=== PATIENT | female | born 1950 | race Caucasian/White ===

== ENCOUNTER 2016-10-24 09:20 | Inpatient (IN) ==
--- NOTE | 2016-10-23 21:35 | Discharge Summary ---
<Avelina Romano - Last Filed: 10/23/16 21:33> Date of Encounter: 10/23/16 - Discharge Diagnosis (1) Arthritis of knee, left Priority: Primary Status: Acute (2) Status post total knee replacement, left Status: Acute (3) HTN (hypertension) Priority: Secondary Status: Chronic Qualifiers: Hypertension type: essential hypertension Qualified Code(s): I10 - Essential (primary) hypertension (4) COPD (chronic obstructive pulmonary disease) Priority: Secondary Status: Chronic Qualifiers: COPD type: unspecified COPD Qualified Code(s): J44.9 - Chronic obstructive pulmonary disease, unspecified (5) CAD (coronary artery disease) Priority: Secondary Status: Chronic Qualifiers: Coronary Disease-Associated Artery/Lesion type: [place] artery [place] vs. transplanted heart: unspecified whether [place] or transplanted heart Associated angina: without angina Qualified Code(s): I25.10 - Atherosclerotic heart disease of [place] coronary artery without angina pectoris (6) Tobacco abuse Priority: Secondary Status: Chronic (7) Decreased GFR Priority: Secondary Status: Chronic - Discharge Medications Home Medications: Albuterol Sulfate [Albuterol Inhaler] 1 puff IH DAILY PRN 12/29/14 [History] Cholecalciferol (Vitamin D3) [Vitamin D3] 2,000 unit PO DAILY 12/29/14 [History] Hydrochlorothiazide [Microzide] 12.5 mg PO DAILY 12/29/14 [History] Ibuprofen [Motrin] 800 mg PO TID PRN 12/29/14 [History] Lisinopril [Zestril] 10 mg PO DAILY 12/29/14 [History] Omeprazole [PriLOSEC] 40 mg PO DAILY 12/29/14 [History] Oxazepam [Serax] 15 mg PO BID 12/29/14 [History] Tiotropium [Spiriva] 18 mcg IH DAILY 12/29/14 [History] Aspirin Enteric Coated [Aspirin EC] 325 mg PO DAILY #21 tablet. 10/23/16 [Rx] OxyCODONE Immed Rel [Roxicodone 5 MG] 5 - 10 mg PO Q6HR PRN #40 tablet 10/23/16 [Rx] Aspirin [Lo-Dose Aspirin EC] 81 mg PO DAILY 10/24/16 [History] Donepezil [Aricept] 5 mg PO HS 10/24/16 [History] [place]-3/Dha/Epa/Fish Oil [Fish Oil 1,000 mg Softgel] 1 each PO DAILY 10/24/16 [ History] Pravastatin Sodium [Pravachol] 80 mg PO HS 10/24/16 [History] Vitamin E Acid Succinate [Vitamin E] 400 units PO DAILY 10/24/16 [History] Allergies/Adverse Reactions: 3 Allergy/AdvReac Type Severity Reaction Status Date / Time naproxen AdvReac Nausea Verified 10/24/16 10:29 Sulfa (Sulfonamide AdvReac Nausea Verified 10/24/16 10:29 Antibiotics) Primary care physician: Robbin Knowles - Patient Status Disposition: Home, Self-Care Condition: Good - Discharge Instructions Follow Up With: Robbin Knowles, PAC [Primary Care Provider] - - Hospital Course Hospital course: Ms. Wellington is a 65 year old female - Time Spent with Patient Total time spent providing and/or coordinating discharge services: <Ramos Medrano - Last Filed: 10/25/16 06:41> Date of Encounter: 10/25/16 Time of Encounter: 06:41 - Discharge Diagnosis (1) Arthritis of knee, left Priority: Primary Status: Chronic (2) Status post total knee replacement, left Priority: Primary Status: Acute (3) HTN (hypertension) Priority: Secondary Status: Chronic Qualifiers: Hypertension type: essential hypertension Qualified Code(s): I10 - Essential (primary) hypertension (4) COPD (chronic obstructive pulmonary disease) Priority: Secondary Status: Chronic Qualifiers: COPD type: unspecified COPD Qualified Code(s): J44.9 - Chronic obstructive pulmonary disease, unspecified (5) CAD (coronary artery disease) Priority: Secondary Status: Chronic Qualifiers: Coronary Disease-Associated Artery/Lesion type: [place] artery [place] vs. transplanted heart: unspecified whether [place] or transplanted heart Associated angina: without angina Qualified Code(s): I25.10 - Atherosclerotic heart disease of [place] coronary artery without angina pectoris (6) Tobacco abuse Priority: Secondary Status: Chronic (7) Decreased GFR Priority: Secondary Status: Chronic Primary care physician: Robbin Knowles - Patient Status Functional capacity at discharge: uses cane/walker Overall status at discharge: patient is progressing back to baseline - Hospital Course Hospital course: Ms. Wellington is a 65 year old female Status post total knee replacement. The patient had an uneventful postoperative course. They received antibiotics and physical therapy and were discharged in stable condition. There will follow -up in the office in 2 weeks. - Time Spent with Patient Total time spent providing and/or coordinating discharge services:
[2016-10-24] MEDS ORDERED: CeFAZolin Pre 2,000 MG/100 ML 2,000 MG/100 ML BAG IVPB ONE (09:38)
[2016-10-24] MEDS ORDERED: Albuterol 2.5 MG/3 ML NEBULIZER IH ONE (09:38)
[2016-10-24] MEDS ORDERED: Gabapentin 300 MG CAPSULE PO ONE (09:40)
[2016-10-24] MEDS ORDERED: Famotidine 20 MG/2 ML VIAL IVP ONE (09:41)
[2016-10-24] MEDS ORDERED: Plasma-Lyte A (PH 7.4) 1,000 ML IVC SCH (09:45)
--- NOTE | 2016-10-24 09:46 | History & Physical Report ---
Date of Encounter: 10/24/16 Time of Encounter: 09:46 24 Hour HP Update - Instructions Instructions: If the History and Physical is less than 30 days old and was completed prior to A.M. admission and or procedure and has NOT been updated on calendar day of procedure please complete this update prior to performing procedure. - Update Patient reports changes in Medical Condition: No Changes in examination, assessment, or condition: No Changes in Medication: No Preop tests/diagnostics Reviewed: Yes Surgery Remains Indicated: Yes Consent for Planned Operative Procedure(s) Verified: Yes - Pre-Operative Checklist Preoperative Checklist Indicated: No Prophylactic Antibiotic Ordered: Yes Is VTE Prophylaxis Indicated?: Yes
[2016-10-24] MEDS ORDERED: *HR* Midazolam HCl 2 MG/2 ML VIAL ONE (09:55)
[2016-10-24] MEDS ORDERED: *HR* FentaNYL (PF) 100 MCG/2 ML VIAL ONE (09:55)
[2016-10-24] MEDS ORDERED: *HR* Propofol 200 MG/20 ML VIAL IVP ONE (09:55)
[2016-10-24] MEDS ORDERED: Lidocaine -MPF 2% 2 ML VIAL ONE (09:56)
--- NOTE | 2016-10-24 10:15 | Anesthesia Evaluation PreOp ---
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 HX Other Medical History: Renal (CKD) Anesthesia History: No Prior Anesthetic Complications Alcohol Use: none Drug use: marijuana Medications and Allergies Albuterol Sulfate [Proair HFA] 1 puff IH DAILY PRN 12/29/14 [History] Aripiprazole [Abilify] 20 mg PO DAILY 12/29/14 [History] Benztropine [Cogentin] 0.5 mg PO HS 12/29/14 [History] Cholecalciferol (Vitamin D3) [Vitamin D] 2,000 unit PO DAILY 12/29/14 [History] Gabapentin [Neurontin] 800 mg PO DAILY 12/29/14 [History] Hydrochlorothiazide [Microzide] 12.5 mg PO DAILY 12/29/14 [History] Ibuprofen [Motrin] 800 mg PO TID PRN 12/29/14 [History] Lisinopril [Zestril] 10 mg PO DAILY 12/29/14 [History] Melatonin [Melatin] 5 mg PO HS PRN 12/29/14 [History] Meloxicam [Mobic] 7.5 mg PO DAILY 12/29/14 [History] Metoprolol [Lopressor] 25 mg PO BID 12/29/14 [History] Omeprazole [Prilosec] 40 mg PO DAILY 12/29/14 [History] Oxaprozin [Daypro] 600 mg PO DAILY 12/29/14 [History] Oxazepam [Serax] 15 mg PO BID 12/29/14 [History] Pravastatin Sodium [Pravachol] 40 mg PO DAILY 12/29/14 [History] Prazosin [Minipress] 1 mg PO DAILY 12/29/14 [History] Tiotropium [Spiriva] 18 mcg IH DAILY 12/29/14 [History] Aspirin Enteric Coated [Aspirin EC] 325 mg PO DAILY #21 tablet. 10/23/16 [Rx] OxyCODONE Immed Rel [Roxicodone 5 MG] 5 - 10 mg PO Q6HR PRN #40 tablet 10/23/16 [Rx] 3 Allergy/AdvReac Type Severity Reaction Status Date / Time naproxen Allergy Nausea Verified 10/17/16 14:52 Sulfa (Sulfonamide AdvReac Nausea Verified 10/17/16 14:51 Antibiotics) - Meds/Allergy Pre-op Review Medications Reviewed: Yes Allergies Reviewed: Yes Beta Blockers on Current Med List: No Anesthesia Results - Labs Laboratory Tests 10/17/16 10/17/16 15:05 15:05 Hgb 13.6 Hct 43.1 Plt Count 243 Sodium 136 Potassium 4.6 H BUN 23 H Creatinine 1.46 H - Imaging EKG: report reviewed (SR) Anesthesia Exam O2 Sat Height 1.65 m Height 1.65 m Height 1.65 m Weight 75.296 kg Weight 75.296 kg Weight 75.296 kg O2 Sat by Pulse Oximetry 95 O2 Sat by Pulse Oximetry 95 Vital Signs Temp Pulse Resp BP Pulse Ox 97.9 F 95 18 101/55 95 10/24/16 09:36 10/24/16 09:36 10/24/16 09:36 10/24/16 09:36 10/24/16 09:36 Height: 5'5 Weight: 166 lbs NPO (# of Hours): MN Pain Scale: 0 - HEENT Pupil (Motor): Pupils equal, EOMI Mallampati: II Denture Type: Upper: Complete Oral Opening: Greater than 3 - 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
[2016-10-24] MEDS ORDERED: *HR* Promethazine 25 MG/ML VIAL IVP PRN (11:03)
[2016-10-24] MEDS ORDERED: *HR* HYDROmorphone (PF) 1 MG/ML SYRINGE IVP PRN (11:03)
--- NOTE | 2016-10-24 11:03 | Anesthesia Procedures ---
Date of Encounter: 10/24/16 Time of Encounter: 11:03 Procedures: Anesthesia - Nerve Block Procedure Date: 10/24/16 Time: 11:01 Allergies/Adv Reactions: Allergies naproxen Adverse Reaction (Verified 10/24/16 10:29) Nausea Sulfa (Sulfonamide Antibiotics) Adverse Reaction (Verified 10/24/16 10:29) Nausea Pre-op Diagnosis: oa left knee Surgical Procedure: left tka Checklist: Correct Patient Identifier, Correct procedure, History checked Correct side: Left Blood Thinner: No Monitor Applied: EKG, BP, Pulse Oximetry Supplemental Oxygen via Nasal Cannula (L/min): 2 Sedation: Versed (mg): 2 Sedation: Fentanyl (mcg): 100 Indication: Post Op Analgesia Block Type: Femoral (30cc 0.375% bupivicaine), Other (ipack 20cc 0.25% bupivicaine) Sterile Technique: Yes Ultrasound used: Yes Anatomy identified: Yes Visual spread of Local: Yes Neuro Stimulation: Yes Nerve Stimulator Range: 0.2 - 0.4 mA Blood on Needle Aspiration: No Smooth Injection of Local: Yes Pain with Injection of Local: No Prep: Chlorhexadine Needle: 22 x 50 mm Stimuplex Local: 0.25% Bupivicaine w/Clonidine 20 mcg/cc, Other Volume (cc): 50 Number of Attempts: 1 Complications: None/effective block
[2016-10-24] MEDS ORDERED: Ondansetron 4 MG/2 ML VIAL ONE (11:22)
[2016-10-24] MEDS ORDERED: Dexamethasone 4 MG/ML VIAL ONE (11:22)
[2016-10-24] MEDS ORDERED: *HR* Morphine 10 MG/ML VIAL ONE (11:32)
--- NOTE | 2016-10-24 11:54 | Orthopedic Operative Note ---
Date of procedure: 10/24/16 Pre-op diagnosis: Left knee arthritis Post-op diagnosis: same Procedure: Procedure: Left Total knee replacement Estimated blood loss: 200 cc Hardware: Metal and polyethylene replacement. Arthrex Femur: 5 Tibia: 5 PS insert: 16 Patella: 34 Exam Under anesthesia: Full flexion and extension no instability Procedural Notes:grade 3 arthritic changes patellofemoral joint grade 4 arthritic changes medial compartment Operative procedure: The patient was brought to the operating room and placed on the operating room table. After general anesthesia was administered the operative knee was examined. Findings were noted in the exam under anesthesia. The operative extremity was prepped and draped in sterile surgical fashion. The patient received IV antibiotics prior to skin incision. A standard midline incision was made centered over the patella. The incision was made through the skin and subcutaneous tissue. A medial parapatellar tendon approach was performed. Care was taken to preserve tissue along the medial aspect of the patella. And to protect the patella tendon. The deep MCL was released off the medial tibia. The infra patella fat pad was excised. Knee was brought into flexion. Patient noted to have grade 4 arthritic changes no compartment and grade 3 arthritic changes patellofemoral joint. The entry hole was made for the intramedullary femoral guide. The guide was seated in 6 degrees of valgus. Anterior cut was made followed by the distal cut. The ACL the PCL the medial and the lateral menisci were excised. The tibia was subluxed forward. The entry hole was made for the intramedullary tibial guide. Guide was seated to resect 2 mm off the more abnormal side. The knee was brought into flexion the distal femur was sized 5. The femoral guide was seated , the anterior cut was made followed by the posterior condylar cut, followed by the chamfer cuts. The finishing guide was seated the box cut was made and the lug holes were drilled. The tibia was sized 5, the tibial tray was seated and prepared with the large drill followed by the fin cutter. Trial reduction revealed full extension no varus valgus instability with the appropriate 16 PS Kay. The patella was everted and cut was made at the level of the insertion of the quadriceps and patella tendon. The patella 34 was sized the guide was seated and the lug holes are drilled. Trial reduction revealed excellent patella tracking. All trial components were removed all bony surfaces were irrigated. The tibia was cemented first followed by the femur. 16 PS Kay was seated and the knee was brought into full extension. The patella was cemented and held in place with the patellar holding clamp. After the cement had hardened, the knee sat for 2 minutes with a Betadine saline solution. The knee was then irrigated out with 2 L of pulse irrigation. The PA closed the knee. The extensor mechanism was closed with #2 FiberWire suture and #2 PDS suture. The subcutaneous tissue was then irrigated and closed deep with #1 PDS suture superficially with 0 PDS suture and skin was closed with skin nereida. The patient was then placed in a sterile dressing and a postoperative brace extubated and transferred to recovery room in stable condition. Anesthesia: JESSENIA Surgeon: Ramos Medrano [place] Superintendent: Avelina Romano Condition: stable Disposition: PACU
[2016-10-24 13:14] LABS: Hematocrit 39.5 % (35.3-44.9)
[2016-10-24] MEDS ORDERED: *HR* OxyCODONE Immed Rel 5 MG TABLET PO PRN (14:01)
[2016-10-24] MEDS ORDERED: Temazepam 15 MG CAPSULE PO PRN (14:01)
[2016-10-24] MEDS ORDERED: Sennosides 8.6 MG TABLET PO PRN (14:01)
[2016-10-24] MEDS ORDERED: Ringers Solution, Lactated 1,000 ML IVC SCH (14:01)
[2016-10-24] MEDS ORDERED: MOM Conc 10 ML UD.LIQ PO PRN (14:01)
[2016-10-24] MEDS ORDERED: Naloxone 0.4 MG/ML INJ IVP PRN (14:01)
[2016-10-24] MEDS ORDERED: Ondansetron 4 MG/2 ML VIAL IVP PRN (14:01)
[2016-10-24] MEDS: *HR* HYDROmorphone (PF) 1 MG/ML SYRINGE IVP PRN (14:17)
[2016-10-24] MEDS ORDERED: *HR* Enoxaparin 30 MG/0.3 ML SYRINGE SQ SCH (18:00)
[2016-10-24] MEDS: *HR* OxyCODONE Immed Rel 5 MG TABLET PO PRN (18:30)
[2016-10-24] MEDS: *HR* Enoxaparin 30 MG/0.3 ML SYRINGE SQ SCH (18:31)
[2016-10-24] MEDS: ceFAZolin 2,000 MG in D5% in Water 100 ML IVPB SCH (18:31)
[2016-10-24] MEDS: Nicotine 14 MG PATCH.TD24 TD SCH (18:58)
[2016-10-25] MEDS: ceFAZolin 2,000 MG in D5% in Water 100 ML IVPB SCH (01:04)
[2016-10-25] MEDS: *HR* OxyCODONE Immed Rel 5 MG TABLET PO PRN ×4 (03:33→18:10)
[2016-10-25 04:34] LABS: Hematocrit 38.5 % (35.3-44.9)
[2016-10-25 04:49] LABS: Calcium 8.8 mg/dL (8.6-10.8); Potassium 4.4 mEq/L (3.5-4.5)
[2016-10-25] MEDS: *HR* HYDROmorphone (PF) 1 MG/ML SYRINGE IVP PRN ×2 (04:55→21:33)
--- NOTE | 2016-10-25 06:42 | Orthopedics Progress Note ---
Date of Encounter: 10/25/16 Time of Encounter: 06:42 - Assessment and Plan (1) Arthritis of knee, left Current Visit: Yes Status: Chronic (2) Status post total knee replacement, left Current Visit: Yes Status: Acute (3) HTN (hypertension) Current Visit: Yes Status: Chronic Qualifiers: Hypertension type: essential hypertension Qualified Code(s): I10 - Essential (primary) hypertension (4) COPD (chronic obstructive pulmonary disease) Current Visit: Yes Status: Chronic Qualifiers: COPD type: unspecified COPD Qualified Code(s): J44.9 - Chronic obstructive pulmonary disease, unspecified (5) CAD (coronary artery disease) Current Visit: Yes Status: Chronic Qualifiers: Coronary Disease-Associated Artery/Lesion type: [place] artery [place] vs. transplanted heart: unspecified whether [place] or transplanted heart Associated angina: without angina Qualified Code(s): I25.10 - Atherosclerotic heart disease of [place] coronary artery without angina pectoris (6) Tobacco abuse Current Visit: Yes Status: Chronic (7) Decreased GFR Current Visit: Yes Status: Chronic Subjective Interval history: Patient was seen this morning doing well without complaints. Afebrile vital signs stable. Operative extremity: Neurovascularly intact Dressing bloody, changed Calves nontender Assessment and plan: Continue with postoperative care hematocrit 35 discharged today Objective Vital signs: Vital Signs Temp Pulse Resp BP Pulse Ox 10/25/16 06:31 98.6 F 107 16 120/77 93 10/25/16 03:35 98.1 F 108 18 147/90 94 10/24/16 23:51 98.3 F 105 17 148/81 94 10/24/16 19:38 97.7 F 111 14 143/56 94 10/24/16 15:48 97 12 158/85 96 10/24/16 14:45 97.6 F 98 14 133/69 92 10/24/16 14:42 97.6 F 98 12 128/79 95 10/24/16 14:24 93 10/24/16 13:43 97.5 F L 98 18 131/79 95 10/24/16 13:28 92 16 138/77 92 10/24/16 13:18 97.0 F L 90 16 128/72 95 10/24/16 13:08 90 16 128/77 93 10/24/16 12:58 99 16 116/63 92 10/24/16 12:48 97.2 F L 95 16 106/45 92 10/24/16 12:38 92 14 117/55 92 10/24/16 12:28 92 16 113/54 93 10/24/16 12:18 97.0 F L 94 16 105/55 93 10/24/16 10:56 91 16 113/60 99 10/24/16 10:41 88 16 120/63 92 10/24/16 09:49 97.9 F 95 18 101/55 95 10/24/16 09:36 97.9 F 95 18 101/55 95 Intake and Output 10/24/16 10/24/16 10/25/16 15:59 23:59 07:59 Intake Total 1000 / 1000 200 / 200 Output Total 200 / 200 0 / 0 0 / 0 Balance 800 / 800 200 / 200 0 / 0 Intake: IV Fluids 1000 / 1000 100 / 100 Plasma-Lyte A (PH 7.4) 1, 1000 / 1000 000 ML @ 25 mls/hr IVC . Q24H [facility] Rx#:[id number] Ancef 2,000 MG In 100 / 100 Dextrose 5% 100 ML @ 200 mls/hr IVPB Q8H [facility] Rx#: [id number] Oral 100 / 100 Output: Urine 0 / 0 0 / 0 0 / 0 Estimated Blood Loss 200 / 200 Other: Meal Dinner Percent of Meal Consumed 50% # Voids 1 Weight 75.296 kg 104.417 kg Patient Weight 10/25/16 23:59 Weight 104.417 kg - Labs CBC & BMP: 10/25/16 04:14 10/25/16 04:14 Labs: Abnormal lab results Creatinine 1.21 mg/dL (0.57-1.11) H 10/25/16 04:14 Est GFR ( Amer) 54 (> 60) L 10/25/16 04:14 Est GFR (Non-Af Amer) 45 (> 60) L 10/25/16 04:14 Glucose 111 mg/dL (70-99) H 10/25/16 04:14 - VTE Documentation of Mechanical Device: Venous foot pump, device Consult Discharge Plan - Plan Referrals: Robbin Knowles, PAC [Primary Care Provider] -
[2016-10-25] MEDS: *HR* Enoxaparin 30 MG/0.3 ML SYRINGE SQ SCH ×2 (06:57→18:10)
[2016-10-25] MEDS: Nicotine 14 MG PATCH.TD24 TD SCH (07:59)
[2016-10-25] MEDS: Aspirin Enteric Coated 81 MG Tablet PO SCH (08:00)
[2016-10-25] MEDS: hydroCHLOROthiazide 25 MG TABLET PO SCH (08:01)
[2016-10-25] MEDS: Cholecalciferol (D-3) 1,000 UNIT TABLET PO SCH (08:01)
[2016-10-25] MEDS: (Omega-3/Dha/Epa/Fish Oil [Fish Oil 1,000 Mg Softgel]) PO SCH (08:01)
[2016-10-25] MEDS: Tiotropium 18 MCG inhalation IH SCH (08:17)
--- NOTE | 2016-10-25 12:11 | Event Note ---
Date of Encounter: 10/26/16 Time of Encounter: 12:09 PCR - Left TKR POD#1 Patient seen at bedside. Labs are stable - Baseline GFR 36, 10/25/16 GFR 47* Pain control: Adequate Participating in PT. Currently working with PT All questions and concerns addressed. Educated on use of incentive spirometer, ambulation, and hydration. Patient educated on post-operative restrictions and care. Addressed: See Above D/C plan:. Unknown at this time
--- NOTE | 2016-10-25 15:53 | Physician Discharge Referral ---
ExtendedCare Referral Info Transfer To: F Provider in Charge: Dr. Ramos Medrano Institutional Level of Care: Skilled - Diagnosis (1) Status post total knee replacement, left Priority: Primary Status: Acute (2) HTN (hypertension) Priority: Secondary Status: Chronic (3) COPD (chronic obstructive pulmonary disease) Priority: Secondary Status: Chronic (4) CAD (coronary artery disease) Priority: Secondary Status: Chronic (5) Tobacco abuse Priority: Secondary Status: Chronic Expected Duration of Placement: less than 30 days Prognosis: Good Aware of Diagnosis: Patient Aware of Prognosis: Patient - Transfer Medications Home Medications: Albuterol Sulfate [Albuterol Inhaler] 1 puff IH DAILY PRN 12/29/14 [History] Cholecalciferol (Vitamin D3) [Vitamin D3] 2,000 unit PO DAILY 12/29/14 [History] Hydrochlorothiazide [Microzide] 12.5 mg PO DAILY 12/29/14 [History] Ibuprofen [Motrin] 800 mg PO TID PRN 12/29/14 [History] Lisinopril [Zestril] 10 mg PO DAILY 12/29/14 [History] Omeprazole [PriLOSEC] 40 mg PO DAILY 12/29/14 [History] Oxazepam [Serax] 15 mg PO BID 12/29/14 [History] Tiotropium [Spiriva] 18 mcg IH DAILY 12/29/14 [History] Aspirin Enteric Coated [Aspirin EC] 325 mg PO DAILY #21 tablet. 10/23/16 [Rx] OxyCODONE Immed Rel [Roxicodone 5 MG] 5 - 10 mg PO Q6HR PRN #40 tablet 10/23/16 [Rx] Aspirin [Lo-Dose Aspirin EC] 81 mg PO DAILY 10/24/16 [History] Donepezil [Aricept] 5 mg PO HS 10/24/16 [History] [place]-3/Dha/Epa/Fish Oil [Fish Oil 1,000 mg Softgel] 1 each PO DAILY 10/24/16 [ History] Pravastatin Sodium [Pravachol] 80 mg PO HS 10/24/16 [History] Vitamin E Acid Succinate [Vitamin E] 400 units PO DAILY 10/24/16 [History] Allergies/Adverse Reactions: 3 Allergy/AdvReac Type Severity Reaction Status Date / Time naproxen AdvReac Nausea Verified 10/24/16 10:29 Sulfa (Sulfonamide AdvReac Nausea Verified 10/24/16 10:29 Antibiotics) - Respiratory Orders Smoking Cessation: Smoking cessation has been advised. For more information, call the [place] Tobacco Quit Line at 5-596-TOWM-NOW. 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 Encourage ambulation throughout the day and incentive spirometer 10x/hour. Elevate affected extremity above heart as tolerated. Brace: Wear knee immobilizer at night x 2 weeks. - Treatments Skin tear care topically daily PRN per policy List/Other: Opsite dressing, leave intact until first post-operative visit. If dressing becomes >50% saturated, contact office, remove dressing and place appropriate dressing in its place. Do not allow for dressing to get wet. José Miguel in place, plan to remove at post-operative day #14-16. - Diet Orders Regular CERTIFICATION: I certify that the transfer of the above named patient to an Extended Care Facility is necessary for the continuing treatment of the diagnosis listed. The above information is true and accurate reflection of patient's current condition. Confidential - Redisclosure prohibited without a patient's written consent.
[2016-10-26] MEDS: *HR* OxyCODONE Immed Rel 5 MG TABLET PO PRN ×4 (04:28→20:24)
[2016-10-26] MEDS: *HR* Enoxaparin 30 MG/0.3 ML SYRINGE SQ SCH ×2 (04:29→17:48)
--- NOTE | 2016-10-26 06:42 | Orthopedics Progress Note ---
Date of Encounter: 10/26/16 Time of Encounter: 06:41 - Assessment and Plan (1) Arthritis of knee, left Current Visit: Yes Status: Chronic (2) Status post total knee replacement, left Current Visit: Yes Status: Acute (3) HTN (hypertension) Current Visit: Yes Status: Chronic Qualifiers: Hypertension type: essential hypertension Qualified Code(s): I10 - Essential (primary) hypertension (4) COPD (chronic obstructive pulmonary disease) Current Visit: Yes Status: Chronic Qualifiers: COPD type: unspecified COPD Qualified Code(s): J44.9 - Chronic obstructive pulmonary disease, unspecified (5) CAD (coronary artery disease) Current Visit: Yes Status: Chronic Qualifiers: Coronary Disease-Associated Artery/Lesion type: [place] artery [place] vs. transplanted heart: unspecified whether [place] or transplanted heart Associated angina: without angina Qualified Code(s): I25.10 - Atherosclerotic heart disease of [place] coronary artery without angina pectoris (6) Tobacco abuse Current Visit: Yes Status: Chronic (7) Decreased GFR Current Visit: Yes Status: Chronic Subjective Interval history: Patient was seen this morning doing well without complaints. Afebrile vital signs stable. Operative extremity: Neurovascularly intact Dressing clean dry and intact Calves nontender Assessment and plan: Continue with postoperative care discharge the patient waiting placement Objective Vital signs: Vital Signs Temp Pulse Resp BP Pulse Ox 10/26/16 04:01 99.9 F H 130 20 130/81 94 10/25/16 23:04 99.8 F H 129 20 148/84 93 10/25/16 21:26 99.4 F 129 18 151/89 94 10/25/16 19:05 99.9 F H 133 18 143/78 93 10/25/16 18:14 98.8 F 130 18 150/84 97 10/25/16 16:30 99.3 F 132 18 156/97 96 10/25/16 16:15 99.3 F 121 18 141/84 95 10/25/16 16:00 99.3 F 132 18 135/70 94 10/25/16 15:45 95 10/25/16 15:30 99.3 F 142 20 108/67 93 10/25/16 11:07 97.8 F 104 16 128/65 95 Intake and Output 10/25/16 10/25/16 10/26/16 15:59 23:59 07:59 Intake Total 1240 / 1240 200 / 200 Output Total 700 / 700 400 / 400 Balance 1240 / 1240 -500 / -500 -400 / -400 Intake: IV Fluids 1000 / 1000 100 / 100 Lactated Ringers 1,000 ML 1000 / 1000 @ 75 mls/hr IVC .[id number] [facility] Rx#:[id number] Oral 240 / 240 100 / 100 Output: Urine 700 / 700 400 / 400 Other: Meal Breakfast Percent of Meal Consumed 100% Weight 104.326 kg Patient Weight 10/26/16 23:59 Weight 104.326 kg - Labs CBC & BMP: 10/25/16 04:14 10/25/16 04:14 Labs: Abnormal lab results Creatinine 1.21 mg/dL (0.57-1.11) H 10/25/16 04:14 Est GFR ( Amer) 54 (> 60) L 10/25/16 04:14 Est GFR (Non-Af Amer) 45 (> 60) L 10/25/16 04:14 Glucose 111 mg/dL (70-99) H 10/25/16 04:14 - VTE Documentation of Mechanical Device: Venous foot pump, device Consult Discharge Plan - Plan Referrals: Robbin Knowles, PAC [Primary Care Provider] -
[2016-10-26 07:29] LABS: Hematocrit 35.1 % (35.3-44.9); Hemoglobin 10.9 g/dL (11.5-15.4)
[2016-10-26 07:56] LABS: Calcium 9.3 mg/dL (8.6-10.8); Potassium 4.1 mEq/L (3.5-4.5)
[2016-10-26] MEDS: Tiotropium 18 MCG inhalation IH SCH (08:12)
[2016-10-26] MEDS: Aspirin Enteric Coated 81 MG Tablet PO SCH (09:28)
[2016-10-26] MEDS: hydroCHLOROthiazide 25 MG TABLET PO SCH (09:28)
[2016-10-26] MEDS: Cholecalciferol (D-3) 1,000 UNIT TABLET PO SCH (09:28)
[2016-10-26] MEDS: Nicotine 14 MG PATCH.TD24 TD SCH (09:29)
[2016-10-26] MEDS: (Omega-3/Dha/Epa/Fish Oil [Fish Oil 1,000 Mg Softgel]) PO SCH (09:29)
[2016-10-26] MEDS ORDERED: 0.9 % Sodium Chloride 500 ML IVC ONE (11:01)
[2016-10-26 11:23] LABS: Basophils % 0.3 %; Eosinophils % 0.1 %; Hematocrit 31.4 % (35.3-44.9); Hemoglobin 10.2 g/dL (11.5-15.4); Immature Granulocytes % 0.5 % (0-4); Immature Platelets 3.7 % (1.1-6.1); Lymphocytes # 1.2 K/mcL (0.6-4.6); Lymphocytes % 10.6 %; Mean Corpuscular HGB Conc 32.5 g/dL (31.6-35.5); Mean Corpuscular Hemoglobin 29.4 pg (28.0-33.3); Mean Corpuscular Volume 90.5 fL (83.0-100.0); Monocytes # 1.2 K/mcL (0.0-1.3); Neutrophils # 8.6 K/mcL (1.6-8.9); Platelet Count 228 K/mcL (140-400); Red Blood Count 3.47 M/mcL (3.82-4.97); Red Cell Distribution Width 13.5 % (11.5-14.5); Segmented Neutrophils % 77.5 %
[2016-10-26 13:27] LABS: Bilirubin,Urine Negative (Negative); Blood,Urine Negative (Negative); Clarity,Urine Clear (Clear); Color,Urine Yellow (Yellow); Glucose,Urine (UA) Normal (Normal); Ketones,Urine Negative (Negative); Leukocyte Esterase,Urine Negative (Negative); Nitrite,Urine Negative (Negative); Protein,Urine Trace mg/dL (Neg-Trace); Specific Gravity,Urine 1.016 (1.010-1.025); Urobilinogen,Urine Normal (Normal)
[2016-10-26 13:29] LABS: Bacteria,Urine None Seen per hpf (None-Few); Hyaline Casts,Urine None Seen per lpf (None-Few); RBC,Urine 0-3 per hpf (0-3); Squamous Epithelial Cell,Urine Moderate per lpf (None-Few); WBC,Urine 0-3 per hpf (0-3)
[2016-10-26] MEDS ORDERED: 0.9 % Sodium Chloride 1,000 ML IVC SCH ×2 (18:45→20:36)
--- NOTE | 2016-10-26 20:26 | Internal Medicine Consult Note ---
<Agarwal,Traci Jonathan - Last Filed: 10/26/16 20:24> Date of Encounter: 10/26/16 Time of Encounter: 20:24 - Assessment and Plan (1) Status post total knee replacement, left Current Visit: Yes Status: Acute Assessment and plan: S/p left Total knee replacement on 04/26/[address] Medrano. Postoperative management including mobility, diet, pain management and DVT prophylaxis per primary team. (2) Tachycardia Current Visit: Yes Status: Acute Assessment and plan: HRs in 120s postoperatively. EKG with ST. Chest x-ray negative, V/Q scan was low probability for pulmonary embolism. UA negative, no elevated WBC. No obvious infectious or metabolic etiology. BP normotensive. Does not appear volume depleted. Possibly secondary to poor pain control as patient is not consistently taking pain medicine. She may benefit from scheduled pain medicine as well as has history of dementia and forgets to ask for pain medicine. Continue to monitor on telemetry, echo pending. (3) Postoperative anemia Current Visit: Yes Status: Acute Assessment and plan: Hgb 10; previously 12 preoperatively. Likely secondary to blood loss and no R. Hemodynamically stable. Intermittently monitor H&H. (4) HTN (hypertension) Current Visit: Yes Status: Chronic Assessment and plan: per hx. Cont home BP medication, monitor BP and titrate PRN Qualifiers: Hypertension type: essential hypertension Qualified Code(s): I10 - Essential (primary) hypertension (5) COPD (chronic obstructive pulmonary disease) Current Visit: Yes Status: Chronic Assessment and plan: Per history. No evidence of exacerbation. Chest x-ray nonacute. Cont PRN albuterol Qualifiers: COPD type: unspecified COPD Qualified Code(s): J44.9 - Chronic obstructive pulmonary disease, unspecified (6) CAD (coronary artery disease) Current Visit: Yes Status: Chronic Assessment and plan: per hx. Asymptomatic, denies chest pain. EKT with ST, no acute ST changes. Cont home ASA, statin. BB added this admission. Qualifiers: Coronary Disease-Associated Artery/Lesion type: [place] artery [place] vs. transplanted heart: unspecified whether [place] or transplanted heart Associated angina: without angina Qualified Code(s): I25.10 - Atherosclerotic heart disease of [place] coronary artery without angina pectoris (7) DVT prophylaxis Current Visit: Yes Status: Acute Assessment and plan: [facility] [place] - CN: HPI - Data of Consult Consult date: 10/26/16 Requesting Physician: Ramos Medrano MD - Consult Narrative Reason for consult: Tachycardia History of present illness: Ms. Wellington is a 65 year old female Past Med Surg Social Fam HX - Past Medical History Medical history: cancer, COPD, hyperlipidemia, hypertension, myocardial infarction Psychiatric history: depression - Past Surgical History Surgical History: breast surgery, hysterectomy, knee replacement - Social History Smoking Status: Current every day smoker Packs per day: 1 Smokeless Tobacco Status: No Alcohol use: none Drug use: marijuana - Family History Mother Hx Family Cancer: Yes Father Hx Family Neurologic Disorders: (alzheimers) - Constitutional Constitutional: as per HPI - EENT Ears: as per HPI - Breasts Breasts: as per HPI - Cardiovascular Cardiovascular ROS IM: as per HPI - Respiratory Respiratory: as per HPI - Gastrointestinal Gastrointestinal: as per HPI - Genitourinary Genitourinary: as per HPI - Musculoskeletal Musculoskeletal ROS IM: joint swelling, limited range of motion, stiffness - Neurological Neurological ROS: as per HPI - Psychiatric Psychiatric: as per HPI Internal Medicine - CN: Meds Albuterol Sulfate [Albuterol Inhaler] 1 puff IH DAILY PRN 12/29/14 [History] Cholecalciferol (Vitamin D3) [Vitamin D3] 2,000 unit PO DAILY 12/29/14 [History] Hydrochlorothiazide [Microzide] 12.5 mg PO DAILY 12/29/14 [History] Ibuprofen [Motrin] 800 mg PO TID PRN 12/29/14 [History] Lisinopril [Zestril] 10 mg PO DAILY 12/29/14 [History] Omeprazole [PriLOSEC] 40 mg PO DAILY 12/29/14 [History] Oxazepam [Serax] 15 mg PO BID 12/29/14 [History] Tiotropium [Spiriva] 18 mcg IH DAILY 12/29/14 [History] Aspirin Enteric Coated [Aspirin EC] 325 mg PO DAILY #21 tablet. 10/23/16 [Rx] OxyCODONE Immed Rel [Roxicodone 5 MG] 5 - 10 mg PO Q6HR PRN #40 tablet 10/23/16 [Rx] Aspirin [Lo-Dose Aspirin EC] 81 mg PO DAILY 10/24/16 [History] Donepezil [Aricept] 5 mg PO HS 10/24/16 [History] [place]-3/Dha/Epa/Fish Oil [Fish Oil 1,000 mg Softgel] 1 each PO DAILY 10/24/16 [ History] Pravastatin Sodium [Pravachol] 80 mg PO HS 10/24/16 [History] Vitamin E Acid Succinate [Vitamin E] 400 units PO DAILY 10/24/16 [History] 3 Allergy/AdvReac Type Severity Reaction Status Date / Time naproxen AdvReac Nausea Verified 10/24/16 10:29 Sulfa (Sulfonamide AdvReac Nausea Verified 10/24/16 10:29 Antibiotics) Internal Medicine - CN: Exam - Constitutional Vitals: Temp Pulse Resp BP Pulse Ox 99.7 F H 109 16 121/68 93 10/26/16 15:24 10/26/16 15:24 10/26/16 15:24 10/26/16 15:24 10/26/16 15:24 General appearance IM: Present: A&O X 2, no acute distress - Head Head exam: Present: atraumatic, normal inspection - Eye Eye exam: Present: PERRL - ENT ENT exam: Present: mucous membranes moist - Neck Neck exam general surgery: Present: full ROM, normal inspection. Absent: tenderness - Respiratory Respiratory exam: Present: CTAB - Cardiovascular Cardiovascular exam IM: Present: tachycardia - GI/Abdominal GI/Abdominal exam IM: Present: normal bowel sounds - Rectal Rectal exam: Present: deferred - Expanded Exam Female exam: Present: deferred - Extremities Exam Additional comments: left knee incision - Back Exam Back exam: Absent: CVA tenderness (L), CVA tenderness (R) - Neurological Exam Neurological exam: Present: alert Additional comments: Alert and oriented to self and situation forgetful Internal Medicine - CN: Reslt - Labs CBC & Chem 7: 10/26/16 11:14 10/26/16 06:24 Labs: Short CBC 10/26/16 10/26/16 Range/Units 06:24 11:14 WBC 11.1 (4.3-11.1) K/mcL Hgb 10.9 L 10.2 L (11.5-15.4) g/dL Hct 35.1 L 31.4 L (35.3-44.9) % Plt Count 228 (140-400) K/mcL Neutrophils # 8.6 (1.6-8.9) K/mcL BMP 10/26/16 06:24 Sodium 139 Potassium 4.1 Chloride 102 Carbon Dioxide 25 BUN 16 Creatinine 1.11 Glucose 117 H Calcium 9.3 Urine 10/26/16 Range/Units 13:15 Urine Color Yellow (Yellow) Urine Clarity Clear (Clear) Urine pH 6.0 (5.0-8.0) pH Units Ur Specific [place] 1.016 (1.010-1.025) Urine Protein Trace (Neg-Trace) mg/dL Urine Glucose (UA) Normal (Normal) mg/dL - Impressions Impressions Chest X-Ray 10/26/16 11:00 IMPRESSION: 1. No acute cardiopulmonary disease. D/ / 10/26/2016 11:26:48 Dimas Ruggiero MD / rasta Interpreting Provider: Dimas Ruggiero MD Pulmonary Perfusion Imaging 10/26/16 11:26 IMPRESSION: Low Probability for Pulmonary Embolus. D/ / Hakeem Quintero MD / Hakeem Quintero MD Interpreting Provider: Hakeem Quintero MD Consult Discharge Plan - Plan Referrals: Robbin Knowles, PAC [Primary Care Provider] - <GalenWilliammarleny - Last Filed: 10/26/16 23:34> Date of Encounter: 10/26/16 Internal Medicine - CN: HPI - Data of Consult Requesting Physician: Ramos Medrano MD - Consult Narrative History of present illness: Ms. Wellington is a 65 year old female Internal Medicine - CN: Exam - Constitutional Vitals: Temp Pulse Resp BP Pulse Ox 99.1 F 106 19 120/75 100 10/26/16 23:18 10/26/16 23:18 10/26/16 23:18 10/26/16 23:18 10/26/16 23:18 Internal Medicine - CN: Reslt - Labs CBC & Chem 7: 10/26/16 11:14 10/26/16 06:24 Labs: Short CBC 10/26/16 10/26/16 Range/Units 06:24 11:14 WBC 11.1 (4.3-11.1) K/mcL Hgb 10.9 L 10.2 L (11.5-15.4) g/dL Hct 35.1 L 31.4 L (35.3-44.9) % Plt Count 228 (140-400) K/mcL Neutrophils # 8.6 (1.6-8.9) K/mcL BMP 10/26/16 06:24 Sodium 139 Potassium 4.1 Chloride 102 Carbon Dioxide 25 BUN 16 Creatinine 1.11 Glucose 117 H Calcium 9.3 Urine 10/26/16 Range/Units 13:15 Urine Color Yellow (Yellow) Urine Clarity Clear (Clear) Urine pH 6.0 (5.0-8.0) pH Units Ur Specific [place] 1.016 (1.010-1.025) Urine Protein Trace (Neg-Trace) mg/dL Urine Glucose (UA) Normal (Normal) mg/dL - Impressions Impressions Chest X-Ray 10/26/16 11:00 IMPRESSION: 1. No acute cardiopulmonary disease. D/ / 10/26/2016 11:26:48 Dimas Ruggiero MD / rasta Interpreting Provider: Dimas Ruggiero MD Pulmonary Perfusion Imaging 10/26/16 11:26 IMPRESSION: Low Probability for Pulmonary Embolus. D/ / Hakeem Quintero MD / Hakeem Quintero MD Interpreting Provider: Hakeem Quintero MD - Attending Attestation I have seen and examined the patient independently. I have discussed that with BUTTON BREAKER Ms. Agarwal regarding management plan. I have reviewed and agree with the documentation. Patient had knee replacement on October 24. Develop tachycardia since yesterday. Patient denies cough, chest pain, shortness of breath, dysuria. Patient has a low fever probably due to surgery. VQ scan has been done, low probability for PE. Tachycardia is probably due to multiple factors: Low volume caused by surgical blood loss, fever, and postoperative pain. EKG shows sinus rhythm. We also have noticed the patient has high baseline heart rate at the 90s. Will give patient hydration with IV fluid, control pain and fever. Patient has been given IV fluid by surgical team and tachycardia has improved after hydration. Will continue IV fluid and closely monitor patient. Agree to check echocardiogram.
--- NOTE | 2016-10-26 21:37 | Event Note ---
Date of Encounter: 10/26/16 Time of Encounter: 11:30 PCR - Left TKR POD#2 Patient seen at bedside. Labs are stable - Baseline GFR 36, 10/25/16 GFR 47*. Patient has been trending tachycardic over the past 24 hours and now in the 120- 130's consistently. One exam patient is asymptomatic and she denies chest pain, shortness of breath, headache, dizziness, vision changes, or worsened confusion. Stat labwork, chest xray ordered. On exam patient exquisitely tender to left calf with 2+ pitting edema noted to left foot and ankle. Pedal and posterior tibial pulses strong. Patient is somewhat confused however a history of dementia is present. Patient has a history of right breast mastectomy in mid- per patient and states she may have had radiation - she also states she thinks she had a pulmonary embolism at some time surrounding her surgery and when she had cancer. 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 Pain control: Adequate Participating in PT. Currently working with PT All questions and concerns addressed. Educated on use of incentive spirometer, ambulation, and hydration. Patient educated on post-operative restrictions and care. Addressed: See Above D/C plan:. Likely inpatient
[2016-10-27] MEDS ORDERED: 0.9 % Sodium Chloride 1,000 ML IVC SCH (00:47)
[2016-10-27] MEDS: *HR* Enoxaparin 30 MG/0.3 ML SYRINGE SQ SCH (04:34)
--- NOTE | 2016-10-27 05:49 | Orthopedics Progress Note ---
Date of Encounter: 10/27/16 Time of Encounter: 05:49 - Assessment and Plan (1) Arthritis of knee, left Current Visit: Yes Status: Chronic (2) Status post total knee replacement, left Current Visit: Yes Status: Acute (3) HTN (hypertension) Current Visit: Yes Status: Chronic Qualifiers: Hypertension type: essential hypertension Qualified Code(s): I10 - Essential (primary) hypertension (4) COPD (chronic obstructive pulmonary disease) Current Visit: Yes Status: Chronic Qualifiers: COPD type: unspecified COPD Qualified Code(s): J44.9 - Chronic obstructive pulmonary disease, unspecified (5) CAD (coronary artery disease) Current Visit: Yes Status: Chronic Qualifiers: Coronary Disease-Associated Artery/Lesion type: [place] artery [place] vs. transplanted heart: unspecified whether [place] or transplanted heart Associated angina: without angina Qualified Code(s): I25.10 - Atherosclerotic heart disease of [place] coronary artery without angina pectoris (6) Tobacco abuse Current Visit: Yes Status: Chronic (7) Decreased GFR Current Visit: Yes Status: Chronic Subjective Interval history: Patient was seen this morning doing well without complaints. Afebrile sinus tachycardia Operative extremity: Neurovascularly intact Dressing clean dry and intact Calves nontender Assessment and plan: Continue with postoperative care discharge the patient waiting placement hematocrit pending Objective Vital signs: Vital Signs Temp Pulse Resp BP Pulse Ox 10/27/16 04:16 99.4 F 120 18 143/76 95 10/26/16 23:18 99.1 F 106 19 120/75 100 10/26/16 20:45 98.8 F 109 18 120/71 95 10/26/16 15:24 99.7 F H 109 16 121/68 93 10/26/16 10:12 98.9 F 120 18 132/76 95 10/26/16 09:35 126 18 94 10/26/16 07:01 99.1 F 118 18 128/76 95 Intake and Output 10/26/16 10/26/16 10/27/16 15:59 23:59 07:59 Intake Total 740 / 740 Output Total 250 / 250 300 / 300 Balance 490 / 490 -300 / -300 Intake: IV Fluids 500 / 500 0.9 % Sodium Chloride 500 500 / 500 ML @ 1875 mls/hr IVC . Q16M ONE Rx#:[id number] Oral 240 / 240 Output: Urine 250 / 250 300 / 300 Other: Meal Breakfast Percent of Meal Consumed 50% # Voids 1 Weight 102.8 kg Patient Weight 10/27/16 23:59 Weight 102.8 kg - Labs CBC & BMP: 10/26/16 11:14 10/26/16 06:24 Labs: Abnormal lab results RBC 3.47 M/mcL (3.82-4.97) L 10/26/16 11:14 Hgb 10.2 g/dL (11.5-15.4) L 10/26/16 11:14 Hct 31.4 % (35.3-44.9) L 10/26/16 11:14 Est GFR (Non-Af Amer) 49 (> 60) L 10/26/16 06:24 Glucose 117 mg/dL (70-99) H 10/26/16 06:24 Ur Squamous Epith Cells Moderate per lpf (None-Few) H 10/26/16 13:15 - VTE Documentation of Mechanical Device: Venous foot pump, device Consult Discharge Plan - Plan Referrals: Robbin Knowles, PAC [Primary Care Provider] -
[2016-10-27 05:59] LABS: Hematocrit 29.1 % (35.3-44.9); Hemoglobin 9.2 g/dL (11.5-15.4); Mean Corpuscular HGB Conc 31.6 g/dL (31.6-35.5); Mean Corpuscular Hemoglobin 29.3 pg (28.0-33.3); Mean Corpuscular Volume 92.7 fL (83.0-100.0); Mean Platelet Volume 9.9 fL (9.4-12.4); Platelet Count 181 K/mcL (140-400); Red Blood Count 3.14 M/mcL (3.82-4.97); Red Cell Distribution Width 13.3 % (11.5-14.5)
[2016-10-27 06:08] LABS: Albumin 2.6 g/dL (3.5-5.0); Albumin/Globulin Ratio 0.8 (1.1-2.2); Alkaline Phosphatase 71 Units/L (38-126); Aspartate Amino Transferase 13 Units/L (5-34); BUN/Creatinine Ratio 14 (6-26); Bilirubin,Total 0.4 mg/dL (0.2-1.2); Blood Urea Nitrogen 13 mg/dL (7-20); Calcium 8.8 mg/dL (8.6-10.8); Carbon Dioxide 27 mEq/L (19-29); Chloride 106 mEq/L (98-109); Globulin 3.1 g/dL (2.4-3.5); Glucose 101 mg/dL (70-99); Osmolality,Calculated 290 (280-300); Potassium 3.7 mEq/L (3.5-4.5); Sodium 140 mEq/L (136-145); Total Protein 5.7 g/dL (6.0-8.3); eGFR For African Americans > 60 (> 60); eGFR For Non-African Americans > 60 (> 60)
[2016-10-27 06:10] LABS: Alanine Aminotransferase < 6 Units/L (0-55)
[2016-10-27] MEDS ORDERED: Furosemide 20 MG/2 ML VIAL IVP ONE (06:33)
[2016-10-27] MEDS: Tiotropium 18 MCG inhalation IH SCH (08:17)
[2016-10-27] MEDS: *HR* OxyCODONE Immed Rel 5 MG TABLET PO PRN ×2 (08:42→18:32)
[2016-10-27] MEDS: Aspirin Enteric Coated 81 MG Tablet PO SCH (08:43)
[2016-10-27] MEDS: Cholecalciferol (D-3) 1,000 UNIT TABLET PO SCH (08:43)
[2016-10-27] MEDS: hydroCHLOROthiazide 25 MG TABLET PO SCH (08:44)
[2016-10-27] MEDS: Nicotine 14 MG PATCH.TD24 TD SCH (08:50)
--- NOTE | 2016-10-27 09:01 | Internal Med Progress Note ---
Date of Encounter: 10/27/16 Time of Encounter: 08:57 - Assessment and plan (1) Acute blood loss as cause of postoperative anemia Current Visit: Yes Status: Acute Assessment and plan: COnsult progress note Consider possible hematoma CT scan of the left knee send hemoccult hold ASA and Lovenox continue omeprazole (2) Tachycardia Current Visit: Yes Status: Acute Assessment and plan: unclear etiology , possible related to acute blood los anemia, possible hematoma , consider transfusion ct of left knee may continue metoprolol, UA, normal , V/Q scan low probability of PE CXR ok would hold discharge until active bleeding is ruled out (3) Status post total knee replacement, left Current Visit: Yes Status: Acute (4) COPD (chronic obstructive pulmonary disease) Current Visit: Yes Status: Chronic Assessment and plan: stable Qualifiers: COPD type: unspecified COPD Qualified Code(s): J44.9 - Chronic obstructive pulmonary disease, unspecified (5) CAD (coronary artery disease) Current Visit: Yes Status: Chronic Assessment and plan: metoprolol started Qualifiers: Coronary Disease-Associated Artery/Lesion type: [place] artery [place] vs. transplanted heart: unspecified whether [place] or transplanted heart Associated angina: without angina Qualified Code(s): I25.10 - Atherosclerotic heart disease of [place] coronary artery without angina pectoris (6) Tobacco abuse Current Visit: Yes Status: Chronic - Subjective Interval history: complains of severe pain on left knee, denies CP or SOB, no dyruia no diarrhea , no fevers - Constitutional Vitals: Temp Pulse Resp BP Pulse Ox 98.9 F 117 16 146/81 97 10/27/16 06:45 10/27/16 06:45 10/27/16 08:20 10/27/16 06:45 10/27/16 08:20 General appearance: Present: A&O X 3, no acute distress - Head Head exam: Present: atraumatic, normocephalic - Eye Eye exam: Present: PERRL, conjuntiva pink, sclera anicteric Pupils: Present: PERRL - Neck Neck exam general surgery: Present: supple, trachea midline. Absent: lymphadenopathy - Respiratory Respiratory exam: Present: CTAB. Absent: accessory muscle use, rales, rhonchi, wheezes - Cardiovascular Cardiovascular exam: Present: RRR, +S1, +S2, tachycardia. Absent: diastolic murmur, gallop, rubs, systolic murmur - GI/Abdominal GI/Abdominal exam: Present: normal bowel sounds, soft, no peritoneal signs. Absent: distended, tenderness - Extremities Exam Extremities exam: Present: warm, radial pulses palpable and symmetrical. Absent : calf tenderness, cyanotic, pedal edema - Neurological Exam Neurological exam: Present: CN II-XII intact, oriented X3, no focal deficits. Absent: pronater drift, facial droop, speech deficit - Skin Skin exam: Present: dry. Absent: intact (Left knee appears extremely swollen, tender, no erythema evidenced) Internal Medicine: Result - Labs CBC & Chem 7: 10/27/16 05:45 10/27/16 05:45 Labs: Short CBC 10/26/16 10/27/16 Range/Units 11:14 05:45 WBC 11.1 7.4 (4.3-11.1) K/mcL Hgb 10.2 L 9.2 L (11.5-15.4) g/dL Hct 31.4 L 29.1 L (35.3-44.9) % Plt Count 228 181 (140-400) K/mcL Neutrophils # 8.6 (1.6-8.9) K/mcL BMP 10/27/16 05:45 Sodium 140 Potassium 3.7 Chloride 106 Carbon Dioxide 27 BUN 13 Creatinine 0.90 Glucose 101 H Calcium 8.8 Liver Function 10/27/16 Range/Units 05:45 Total Bilirubin 0.4 (0.2-1.2) mg/dL AST 13 (5-34) Units/L ALT < 6 (0-55) Units/L Alkaline Phosphatase 71 (38-126) Units/L Albumin 2.6 L (3.5-5.0) g/dL Urine 10/26/16 Range/Units 13:15 Urine Color Yellow (Yellow) Urine Clarity Clear (Clear) Urine pH 6.0 (5.0-8.0) pH Units Ur Specific [place] 1.016 (1.010-1.025) Urine Protein Trace (Neg-Trace) mg/dL Urine Glucose (UA) Normal (Normal) mg/dL - Impressions Impressions Chest X-Ray 10/26/16 11:00 IMPRESSION: 1. No acute cardiopulmonary disease. D/ / 10/26/2016 11:26:48 Dimas Ruggiero MD / rasta Interpreting Provider: Dimas Ruggiero MD Pulmonary Perfusion Imaging 10/26/16 11:26 IMPRESSION: Low Probability for Pulmonary Embolus. D/ / Hakeem Quintero MD / Hakeem Quintero MD Interpreting Provider: Hakeem Quintero MD - VTE Documentation of Mechanical Device: Venous foot pump, device Consult Discharge Plan - Plan Referrals: Robbin Knowles, PAC [Primary Care Provider] -
[2016-10-27] MEDS: (Omega-3/Dha/Epa/Fish Oil [Fish Oil 1,000 Mg Softgel]) PO SCH (09:04)
[2016-10-27] MEDS ORDERED: 0.9 % Sodium Chloride 250 ML ONE ×2 (09:31→15:04)
--- NOTE | 2016-10-27 12:25 | Event Note ---
Date of Encounter: 10/28/16 Time of Encounter: 12:12 PCR - Left TKR POD#2]3 Patient seen at bedside. Labs are stable - Kidney function returned to baseline. Sinus Tachycardia 10/26/16 - VQ Scan - low probability for PE, Doppler was negative of LLE, EKG - Sinus Tachycardia, UA -negative, CXR normal, labs were WNL. Fluids re-started at 75mL/hour. H/H dropped today - Tranfusing 2 units. Hospitalist consulted 10/26 secondary to continued tachycardia, despite starting Metoprolol 25mg q 12 hours. One exam patient is asymptomatic and she denies chest pain, shortness of breath, headache, dizziness, vision changes, or worsened confusion. Stat labwork , chest xray ordered. Confusion is intermittent. History of possible dementia. Patient has a history of right breast mastectomy in mid- per patient and states she may have had radiation - she also states she thinks she had a pulmonary embolism at some time surrounding her surgery and when she had cancer. Hospitalist expressed concerns today for Left Knee - ordered CT; went back up this AM to re-examine knee. Does not feel she has a hematoma at this time, and has expected post-operative bruising, and she did have a fall on 10/25 - XRAYS have been reviewed - no evidence of change. Pain control: Adequate Participating in PT. Currently working with PT All questions and concerns addressed. Educated on use of incentive spirometer, ambulation, and hydration. Patient educated on post-operative restrictions and care. Addressed: See Above D/C plan:.Awaiting transfusion to be completed. Plan to D/C today per .
--- NOTE | 2016-10-27 17:08 | Electrocardiograph Report ---
[address] [place], [place] [address] Test Date: 2016-10-26 Pat Name: Karli Wellington Department: 114 Room: [facility] Gender: F Medicine Worker: : 1950 Requested By: Ramos Medrano Order Number: [id number] Reading MD: Vivien Hall Measurements Intervals [place] Rate: 125 P: 67 CA: 153 QRS: 48 QRSD: 89 T: 72 QT: 301 QTc: 375 Interpretive Statements SINUS TACHYCARDIA NONSPECIFIC T-WAVE ABNORMALITY ABNORMAL RHYTHM ECG Electronically Signed On 10-27-2016 17:06:54 EDT by Vivien Hall
[2016-10-27 18:06] VITALS: BP 113/72
--- NOTE | 2016-10-27 19:46 | Venous Imaging Report ---
LE Venous Duplex Patient Name:Karli Wellington Order Number:[id number] Procedure Date:10/26/2016 Date:1950ge:65 yrs Gender:Female [facility] Room #: Washer Engineer:Alejandra Garcia RDCS Referring MD:Kristie Zacarias PA-C digester capper:None Reading MD:Dann Méndez MD Primary Indications:Calf pain Secondary Indications: Risk Factors Yes/No Hx of DVT Hx of Chemotherapy Impressions: Normal left lower extremity deep and superficial venous exam. Normal contralateral common femoral vein. Findings Prior Study: No prior study available for comparison. Lower Extremity Venous Duplex Side Vein Compress Spontaneous Flow Augment Diameter (cm) Depth (cm) Left Distal Iliac Normal Yes Phasic Yes Left Common Femoral Normal Yes Phasic Yes Left Superficial Femoral Normal Yes Phasic Yes Left Popliteal Normal Yes Phasic Yes Left Posterior Tibial Normal Yes Phasic Yes Left Peroneal Normal Yes Phasic Yes Left [place]henofemoral [place] Normal Yes Phasic Yes Left [place] Normal Yes Phasic Yes Left [place] Normal Yes Phasic Yes Right Common Femoral Normal Yes Phasic Yes Updated by Dann Méndez MD on 10/27/2016 7:40:20 PM electronically signed on 10/27/2016 7:40:31 PM with status of Final
== END 2016-10-27 19:04 | disposition home or self-care (01) | DRG 470 ==
LOC: SAMDAY 09:20 → 3NENU 13:32
PROVIDERS: ADMIT Orthopaedic Surgery; ATTEND Orthopaedic Surgery

== ENCOUNTER 2021-06-09 04:51 | Inpatient (IN) ==
[2021-06-09] MEDS ORDERED: methylPREDNISolone 125 MG/2 ML VIAL IVP ONE (05:19)
[2021-06-09 05:38] LABS: Basophils % 0.2 %; Hematocrit 43.4 % (35.3-44.9); Hemoglobin 13.6 g/dL (11.5-15.4); Immature Granulocytes % 0.8 % (0-4); Lymphocytes # 0.6 K/mcL (0.6-4.6); Lymphocytes % 3.5 %; Mean Corpuscular HGB Conc 31.3 g/dL (31.6-35.5); Mean Corpuscular Hemoglobin 28.7 pg (28.0-33.3); Mean Corpuscular Volume 91.6 fL (83.0-100.0); Mean Platelet Volume 9.5 fL (9.4-12.4); Monocytes # 1.1 K/mcL (0.0-1.3); Monocytes % 6.4 %; Neutrophils # 15.3 K/mcL (1.6-8.9); Platelet Count 256 K/mcL (140-400); Red Blood Count 4.74 M/mcL (3.82-4.97); Red Cell Distribution Width 14.5 % (11.5-14.5); Segmented Neutrophils % 89.1 %; White Blood Count 17.2 K/mcL (4.3-11.1)
[2021-06-09] MEDS: Ipratropium/Albuterol Neb 3 ML IH ONE (05:47)
[2021-06-09 05:50] LABS: VBG HCO3 29 mEq/L (21-27); VBG PCO2 40 mmHg (41-51); VBG PH 7.46 pH Units (7.32-7.42); VBG PO2 63 mmHg (25-50)
[2021-06-09] MEDS ORDERED: Vancomycin 1,250 MG/262.5 ML IV.SOLN IVPB ONE (06:01)
[2021-06-09] MEDS ORDERED: Piperacillin/Tazobactam 3.375 GM in 0.9 % Sodium Chloride Mini Bag 100 ML IVPB ONE (06:01)
[2021-06-09] MEDS ORDERED: Albuterol 2.5 MG/3 ML NEBULIZER IH ONE (06:15)
[2021-06-09 06:37] LABS: Albumin 4.1 g/dL (3.5-5.7); Albumin/Globulin Ratio 1.3 (1.1-2.2); Bilirubin,Indirect 0.5 mg/dL (0.0-1.0); Bilirubin,Total 0.5 mg/dL (0.3-1.0); Calcium 9.5 mg/dL (8.6-10.3); Globulin 3.1 g/dL (2.4-3.5); Potassium 3.1 mEq/L (3.5-5.1); Total Protein 7.2 g/dL (6.4-8.9); Troponin I 0.09 ng/mL (< 0.04)
[2021-06-09 07:29] LABS: Adenovirus Not Detected (Not Detect); Bordetella Pertussis Not Detected (Not Detect); Chlamydophila pneumoniae Not Detected (Not Detect); Coronavirus 229E Not Detected (Not Detect); Coronavirus HKU1 Not Detected (Not Detect); Coronavirus NL63 Not Detected (Not Detect); Coronavirus OC43 Not Detected (Not Detect); Human Metapneumovirus Not Detected (Not Detect); Human Rhinovirus/Enterovirus Not Detected (Not Detect); Influenza A Subtype 2009 H1 Not Detected (Not Detect); Influenza B Not Detected (Not Detect); Mycoplasma pneumoniae Not Detected (Not Detect); Parainfluenza Virus 1 Not Detected (Not Detect); Parainfluenza Virus 2 Not Detected (Not Detect); Parainfluenza Virus 3 Not Detected (Not Detect); Parainfluenza Virus 4 Not Detected (Not Detect); Respiratory Syncytial Virus Not Detected (Not Detect); SARS-CoV-2 Not Detected (Not Detect)
[2021-06-09] MEDS ORDERED: *HR* HYDROcodone/Acet 5/325 mg TABLET PO PRN (07:48)
[2021-06-09] MEDS ORDERED: Naloxone 0.4 MG/ML INJ IVP PRN (07:48)
[2021-06-09] MEDS ORDERED: Ondansetron 4 MG/2 ML VIAL IVP PRN (07:48)
[2021-06-09] MEDS ORDERED: 0.9 % Sodium Chloride 1,000 ML IVC SCH (08:00)
[2021-06-09] MEDS: Multivit/Ca/Min/Fe/FA 1 TAB TABLET PO SCH (08:52)
[2021-06-09] MEDS: Aspirin Enteric Coated 81 MG Tablet PO SCH (08:52)
[2021-06-09] MEDS: levoFLOXacin 750 MG/150 ML 750 MG/150 ML BAG IVPB SCH (08:52)
[2021-06-09] MEDS: Ipratropium/Albuterol Neb 3 ML IH SCH ×5 (09:35→23:03)
[2021-06-09 09:51] LABS: ABG Base Excess 3 mEq/L (-2 to 3); ABG HCO3 28 mEq/L (21-27); ABG Oxygen Saturation 94 % (95-98); ABG PCO2 41 mmHg (35-45); ABG PH 7.44 pH Units (7.32-7.45); ABG PO2 67 mmHg (85-104); ABG TCO2 29 mEq/L (20-26)
[2021-06-09] MEDS: Budesonide/Formoterol 160/4.5 1 PUFF INH IH SCH ×2 (10:49→19:32)
[2021-06-09 11:32] LABS: Bacteria,Urine Few per hpf (None-Few); Bilirubin,Urine Negative (Negative); Blood,Urine Small (Negative); Clarity,Urine Turbid (Clear); Color,Urine Yellow (Yellow); Glucose,Urine (UA) Normal (Normal); Ketones,Urine Negative (Negative); Leukocyte Esterase,Urine Small (Negative); Mucus,Urine Few per lpf (None-Few); Nitrite,Urine Negative (Negative); Protein,Urine >=300 mg/dL (Neg-Trace); Specific Gravity,Urine 1.026 (1.010-1.025); Squamous Epithelial Cell,Urine Few per hpf (None-Few); Urobilinogen,Urine Normal (Normal)
[2021-06-09] MEDS: MethylPREDNISolone 40 MG/ML VIAL IVP SCH (15:25)
[2021-06-09] MEDS ORDERED: Perflutren Lipid Microsphere 1.3 ML in 0.9 % Sodium Chloride 8.7 ML IVP PRN (17:36)
[2021-06-09] MEDS: traZODone 50 MG TABLET PO SCH (20:52)
[2021-06-10] MEDS: MethylPREDNISolone 40 MG/ML VIAL IVP SCH ×3 (00:55→18:23)
[2021-06-10] MEDS: Ipratropium/Albuterol Neb 3 ML IH SCH ×6 (03:58→23:25)
[2021-06-10 05:23] LABS: Basophils % 0.1 %; Hematocrit 37.3 % (35.3-44.9); Immature Granulocytes % 0.9 % (0-4); Lymphocytes # 0.9 K/mcL (0.6-4.6); Lymphocytes % 5.4 %; Mean Corpuscular HGB Conc 31.1 g/dL (31.6-35.5); Mean Corpuscular Hemoglobin 28.3 pg (28.0-33.3); Mean Platelet Volume 9.7 fL (9.4-12.4); Monocytes # 0.5 K/mcL (0.0-1.3); Monocytes % 3.1 %; Neutrophils # 15.6 K/mcL (1.6-8.9); Platelet Count 227 K/mcL (140-400); Red Cell Distribution Width 14.6 % (11.5-14.5); Segmented Neutrophils % 90.5 %; White Blood Count 17.3 K/mcL (4.3-11.1)
[2021-06-10] MEDS: *HR* Enoxaparin 40 MG/0.4 ML SYRINGE SQ SCH (05:27)
[2021-06-10 05:31] LABS: Hemoglobin 11.6 g/dL (11.5-15.4); INR 1.2; Prothrombin Time 13.1 Seconds (9.4-12.1)
[2021-06-10 05:34] LABS: Activated Partial Thrombo Time 42.7 Seconds (26.0-36.0)
[2021-06-10 05:41] LABS: Calcium 8.9 mg/dL (8.6-10.3); Magnesium 1.7 mg/dL (1.6-2.6); Phosphorous 3.8 mg/dL (2.7-4.5); Potassium 3.3 mEq/L (3.5-5.1)
[2021-06-10] MEDS: Budesonide/Formoterol 160/4.5 1 PUFF INH IH SCH ×2 (08:21→20:13)
[2021-06-10] MEDS: Aspirin Enteric Coated 81 MG Tablet PO SCH (08:50)
[2021-06-10] MEDS: Multivit/Ca/Min/Fe/FA 1 TAB TABLET PO SCH (08:50)
[2021-06-10] MEDS: 0.9 % Sodium Chloride 1,000 ML IVC SCH ×2 (11:01→17:20)
[2021-06-10] MEDS: traZODone 50 MG TABLET PO SCH (19:50)
[2021-06-11] MEDS: MethylPREDNISolone 40 MG/ML VIAL IVP SCH ×3 (03:11→18:31)
[2021-06-11] MEDS: Ipratropium/Albuterol Neb 3 ML IH SCH ×6 (03:49→23:46)
[2021-06-11] MEDS: *HR* Enoxaparin 40 MG/0.4 ML SYRINGE SQ SCH (05:29)
[2021-06-11] MEDS: Budesonide/Formoterol 160/4.5 1 PUFF INH IH SCH ×2 (07:37→20:26)
[2021-06-11] MEDS: Aspirin Enteric Coated 81 MG Tablet PO SCH (08:53)
[2021-06-11] MEDS: lisinopriL 20 MG TABLET PO SCH (08:53)
[2021-06-11] MEDS: Multivit/Ca/Min/Fe/FA 1 TAB TABLET PO SCH (08:53)
[2021-06-11] MEDS: levoFLOXacin 750 MG/150 ML 750 MG/150 ML BAG IVPB SCH (08:53)
[2021-06-11] MEDS: traZODone 50 MG TABLET PO SCH (21:03)
[2021-06-11] MEDS: *HR* Labetalol 20 MG/4 ML SYRINGE IVP PRN ×2 (21:21→23:19)
[2021-06-12 01:45] LABS: Basophils % 0.2 %; Hematocrit 35.2 % (35.3-44.9); Hemoglobin 11.2 g/dL (11.5-15.4); Lymphocytes # 0.7 K/mcL (0.6-4.6); Lymphocytes % 5.8 %; Mean Corpuscular HGB Conc 31.8 g/dL (31.6-35.5); Mean Corpuscular Hemoglobin 28.9 pg (28.0-33.3); Mean Platelet Volume 9.7 fL (9.4-12.4); Monocytes # 0.5 K/mcL (0.0-1.3); Monocytes % 3.7 %; Neutrophils # 10.9 K/mcL (1.6-8.9); Platelet Count 268 K/mcL (140-400); Red Blood Count 3.87 M/mcL (3.82-4.97); Red Cell Distribution Width 14.6 % (11.5-14.5); Segmented Neutrophils % 88.3 %; White Blood Count 12.4 K/mcL (4.3-11.1)
[2021-06-12] MEDS: MethylPREDNISolone 40 MG/ML VIAL IVP SCH ×2 (01:52→12:14)
[2021-06-12] MEDS: *HR* Labetalol 20 MG/4 ML SYRINGE IVP PRN (01:53)
[2021-06-12 02:01] LABS: Calcium 8.9 mg/dL (8.6-10.3); Potassium 3.9 mEq/L (3.5-5.1)
[2021-06-12] MEDS: Ipratropium/Albuterol Neb 3 ML IH SCH ×3 (03:49→11:00)
[2021-06-12] MEDS: *HR* Enoxaparin 40 MG/0.4 ML SYRINGE SQ SCH (04:10)
[2021-06-12] MEDS: Budesonide/Formoterol 160/4.5 1 PUFF INH IH SCH (07:55)
[2021-06-12] MEDS: Aspirin Enteric Coated 81 MG Tablet PO SCH (08:07)
[2021-06-12] MEDS: lisinopriL 20 MG TABLET PO SCH (08:08)
[2021-06-12] MEDS: Multivit/Ca/Min/Fe/FA 1 TAB TABLET PO SCH (08:08)
[2021-06-12 08:15] VITALS: TEMP 98
[2021-06-12] MEDS ORDERED: amLODIPine 5 MG TABLET PO SCH (09:00)
[2021-06-12 09:51] VITALS: BP 160/88; PULSE 92; O2SAT 97
== END 2021-06-12 14:15 | disposition home health service (06) | DRG 193 ==
LOC: 2NENU 04:51 → EMEROOARM 04:51 → 2NENU 09:24
PROVIDERS: ADMIT Internal Medicine; ATTEND Internal Medicine